=== PATIENT | female | born 1990 | race African-American/Black ===

== ENCOUNTER 2020-11-20 13:50 | Emergency (ER) | payer SELFPAY ==
[~2020-11-20] VITALS: Ht 167.6 cm; Wt 68.5 kg
[2020-11-20 13:50] VITALS: BP 118/70
--- NOTE | 2020-11-20 13:55 | NUR ---
30 y.o female was BIBA as female was found passed out and pantsless at a [employer] [facility]. pt confused, agitated, pin point pupils, slightly elevated HR of 110s, shouting, attempted to leave the ER. reported pt used meth. AAOx1- patient able to recognize self. PMH: unobtainable Allergies: unobtainable
[2020-11-20] MEDS ORDERED: diphenhydrAMINE 50 MG/ML VIAL ONE (13:57)
--- NOTE | 2020-11-20 14:00 | NUR ---
pt placed on 4 point restraints. Resraints placed with quick-release ties to bed frame. Pt harm to self and others. Pt under observation. notified
[2020-11-20] MEDS ORDERED: diphenhydrAMINE 50 MG/ML VIAL IM ONE (14:05)
--- NOTE | 2020-11-20 14:05 | NUR ---
Physician order given to place hard type restraints to to prevent harm to self, harm to others. Resraints placed with quick-release ties to bed frame. Pt under observation.
--- NOTE | 2020-11-20 14:15 | NUR ---
Anais kerr in ED - 11/20/20 at 1542 by MATT pt on 4 point restraint. harm to self and others. pt shouting. VSS. Pt under observation.
--- NOTE | 2020-11-20 14:54 | NUR ---
PT SEVERELY AGITATED AND RIPPED OFF THE TOCO MACHINE. L&D CALLED AND SPOKE TO JOHNSON AND MADE HER AWARE.
--- NOTE | 2020-11-20 15:42 | NUR ---
pt got out of the 4 point restraints. pt got out of the left wrist restraint. pt placed back on the restraint of the left wrist
--- NOTE | 2020-11-20 15:44 | NUR ---
turned the lights down for pt to calm.
[2020-11-20] MEDS ORDERED: HALOPERIDOL IM 5 MG/ML VIAL IM ONE (16:10)
--- NOTE | 2020-11-20 16:40 | NUR ---
psychiatry MD at bedside examining patient
[2020-11-20] MEDS ORDERED: diphenhydrAMINE 50 MG/ML VIAL IM PRN (16:50)
[2020-11-20] MEDS ORDERED: HALOPERIDOL 5 MG TAB PO PRN (16:50)
[2020-11-20] MEDS ORDERED: HALOPERIDOL IM 5 MG/ML VIAL IM PRN (16:50)
[2020-11-20] MEDS ORDERED: diphenhydrAMINE 50 MG CAP PO PRN (16:50)
--- NOTE | 2020-11-20 17:32 | NUR ---
patient urinated in a bed sanchez for urine collection
--- NOTE | 2020-11-20 17:45 | NUR ---
pt sitting up, and tore off bilateral upper extremity restraint. pt still has bilateral lower extremity hard restraints. MD notified.
[2020-11-20 17:55] LABS: BARBITURATE, URINE NEGATIVE ng/ml (NEG <=200); BENZODIAZEPINE, URINE NEGATIVE ng/mL (NEG <=200); CANNABINOID, URINE NEGATIVE ng/mL (NEG <=50); COCAINE, URINE NEGATIVE ng/mL (NEG <=300); OPIATE, URINE NEGATIVE ng/mL (NEG <=2000); PHENCYCLIDINE SCREEN,URINE NEGATIVE ng/mL (NEG <=25)
--- NOTE | 2020-11-20 18:00 | NUR ---
lab at bedside for blood collection
--- NOTE | 2020-11-20 18:07 | NUR ---
ultrasound at bedside
[2020-11-20 18:10] LABS: BASOPHILS % (AUTO) 0.3 % (0.0-2.0); EOSINOPHILS % (AUTO) 1.8 % (0.0-4.0); HEMATOCRIT 31.9 % (36-48); HEMOGLOBIN 10.6 g/dL (12.0-16.0); LYMPHOCYTES % (AUTO) 13.8 % (20.5-51.1); MEAN CORPUSCULAR HEMOGLOBIN 32 pg (27-31); MEAN CORPUSCULAR HGB CONC 33 g/dL (33-37); MONOCYTES % (AUTO) 8.9 % (1.7-9.3); NEUTROPHILS # (AUTO) 5.6 K/uL (1.8-7.7); NEUTROPHILS % (AUTO) 75.2 % (42.2-75.2); PLATELET COUNT (AUTO) 272 K/uL (140-450); RED BLOOD CELL COUNT(AUTO) 3.32 MIL/uL (4.20-5.40); RED CELL DISTRIBUTION WIDTH 14.6 % (11.6-13.7); WHITE BLOOD COUNT (AUTO) 7.5 K/uL (4.8-10.8)
[2020-11-20 18:11] LABS: EOSINOPHILS # (AUTO) 0.1 K/uL (0-0.4); MONOCYTES # (AUTO) 0.7 K/uL (0.8-1.0)
--- NOTE | 2020-11-20 18:31 | NUR ---
Patient appears to be resting comfortably in bed. Vital Signs within normal limits. Respirations even and unlabored.
[2020-11-20 18:52] LABS: ACETAMINOPHEN < 0.5 ug/ml (10-30); ALBUMIN 2.9 g/dL (3.4-5.0); ASPARTATE AMINOTRANSFERASE 36 U/L (15-37); CARBON DIOXIDE 24.3 mmol/L (21-32); CHLORIDE 104 mmol/L (98-107); CREATININE 0.5 mg/dL (0.6-1.3); GFR ARICAN-AMERICAN 184 mL/min (>90); GLUCOSE 72 mg/dL (74-106); POTASSIUM 3.3 mmol/L (3.5-5.1); SALICYLATE < 2.8 mg/dL (2.8-20.0); SODIUM SERUM 136 mmol/L (136-145); TOTAL BILIRUBIN 0.4 mg/dL (0.0-1.0); UREA NITROGEN, BLOOD 4 mg/dL (7-18)
--- NOTE | 2020-11-20 20:05 | NUR ---
Anais kerr in [facility] - 11/20/20 at 2023 by BROCK DAVID MARQUES FOR TRANSPOR/TRANSFER TO [facility]
[2020-11-20 20:50] VITALS: BP 124/76
--- NOTE | 2020-11-20 20:50 | NUR ---
TRANSFERED VIA [facility]
== END 2020-11-20 20:50 | disposition short-term general hospital (02) ==
LOC: MED 13:50
DX: O99.343 Other mental disorders complicating pregnancy, third trimester (principal); F29 Unspecified psychosis not due to a substance or known physiological condition; Z20.822 Contact with and (suspected) exposure to COVID-19
CPT/HCPCS: 36415; 76805; 80053; 80305; 81025; 85025; 87426; 96372; 99291; G0480; G0482; J1200; J1630; U0003